=== PATIENT | male | born 1955 | race American Indian/Alaskan Native ===

== ENCOUNTER 2018-02-07 02:57 | Emergency (ER) | payer OTHER ==
[2018-02-07] MEDS ORDERED: MOTRIN ONE (06:17)
[2018-02-07 06:22] VITALS: BP 172/88
[2018-02-07] MEDS ORDERED: MOTRIN PO ONE (06:22)
--- NOTE | 2018-02-07 07:26 | XRay Report ---
FINAL REPORT EXAM: XR FEMUR 2+V RT HISTORY: Right femur pain COMPARISONS: None. FINDINGS: AP and lateral views right femur No bone lesion, periosteal reaction, or fracture. No deformity or gross malalignment. Mild right hip and knee osteoarthrosis. IMPRESSION: Intact right femur.
--- NOTE | 2018-02-07 07:27 | XRay Report ---
FINAL REPORT EXAM: XR SPINE LUMBOSACRAL 2-3V HISTORY: lower back pain TECHNIQUE: AP and lateral views lumbar spine PRIORS: None. FINDINGS: Mild intervertebral disc space narrowing at L3-L4 through L5-S1 with associated endplate spondylosis. There is mild anterolisthesis without evident spondylolysis at L3-L4. Lumbar lordosis is otherwise intact. Vertebral body heights are preserved. No acute fracture seen. IMPRESSION: [id number] sequela of disc degeneration in the lower lumbar spine as above. No acute finding. Consider additional imaging for worsening/persistent symptoms.
--- NOTE | 2018-02-07 07:29 | XRay Report ---
FINAL REPORT EXAM: XR KNEE 3V RT HISTORY: right knee pain COMPARISONS: None. FINDINGS: AP and lateral views right knee Mild tricompartmental osteoarthrosis. Small joint effusion. Mild cortical irregularity near the femoral origin of the medial collateral ligament. Quadriceps insertional enthesophytes at the superior pole of the patella. Periarticular soft tissue swelling. IMPRESSION: Soft tissue swelling about the right knee without fracture or gross malalignment. Mild tricompartmental osteoarthrosis with small effusion. Mild cortical irregularity near the femoral origin of the medial collateral ligament may be due to prior ligamentous injury. Consider additional imaging for worsening/persistent symptoms.
[2018-02-07] MEDS ORDERED: NORCO 5/325 PO ONE (08:04)
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
== END 2018-02-07 08:27 | disposition home or self-care (01) ==
LOC: ED 02:57
DX: S39.012A Strain of muscle, fascia and tendon of lower back, initial encounter (principal); M19.90 Unspecified osteoarthritis, unspecified site; S70.01XA Contusion of right hip, initial encounter; S80.01XA Contusion of right knee, initial encounter; V49.59XA Passenger injured in collision with other motor vehicles in traffic accident, initial encounter; Y93.89 Activity, other specified; Y92.89 Other specified places as the place of occurrence of the external cause; Y99.8 Other external cause status
CPT/HCPCS: 72100